=== PATIENT | female | born 1980 | race Caucasian/White ===

== ENCOUNTER 2024-06-02 06:10 | Day surgery (SDC) | payer OTHER ==
[2024-06-02] MEDS ORDERED: fentaNYL CITRATE 50 MCG/ML AMPUL IV PUSH ONE (10:30)
[2024-06-02] MEDS ORDERED: MIDAZOLAM HCL 2 MG/2 ML VIAL IV ONE (10:30)
[2024-06-02] MEDS ORDERED: DIPHENHYDRAMINE HCL 50 MG/ML VIAL 1ML IV ONE (10:30)
== END 2024-06-02 12:15 | disposition home or self-care (01) ==
LOC: AMB-ENDOS 06:10
PROVIDERS: ATTEND Colon & Rectal Surgery
DX: K62.5 Hemorrhage of anus and rectum (principal)